=== PATIENT | female | born 1995 | race African-American/Black ===

== ENCOUNTER 2017-08-25 13:34 | Emergency (ER) | payer OTHER ==
[~2017-08-25] VITALS: Ht 160 cm; Wt 83.0 kg
[2017-08-25 14:18] LABS: URINE BILIRUBIN NEGATIVE (Negative); URINE BLOOD NEGATIVE (Negative); URINE CLARITY CLEAR; URINE COLOR YELLOW; URINE GLUCOSE-RANDOM NEGATIVE (Negative); URINE KETONES NEGATIVE (Negative); URINE LEUKOCYTES-REFLEX NEGATIVE (Negative); URINE NITRITE-REFLEX NEGATIVE (Negative); URINE PROTEIN NEGATIVE (Negative); URINE SPECIFIC GRAVITY 1.025 (1.005-1.030); URINE UROBILINOGEN 0.2 E.U./dl (0.2-1.0)
[2017-08-25 15:15] VITALS: BP 115/80
== END 2017-08-25 15:16 | disposition left against medical advice (07) ==
LOC: M.ERS 13:34
PROVIDERS: Physician Assistant
DX: R10.30 Lower abdominal pain, unspecified (principal); F17.210 Nicotine dependence, cigarettes, uncomplicated

== ENCOUNTER 2017-08-29 15:47 | Emergency (ER) | payer OTHER ==
[~2017-08-29] VITALS: Ht 160 cm; Wt 89.8 kg
[2017-08-29 16:02] LABS: URINE BILIRUBIN NEGATIVE (Negative); URINE BLOOD NEGATIVE (Negative); URINE CLARITY CLEAR; URINE COLOR YELLOW; URINE GLUCOSE-RANDOM NEGATIVE (Negative); URINE KETONES NEGATIVE (Negative); URINE LEUKOCYTES-REFLEX NEGATIVE (Negative); URINE NITRITE-REFLEX NEGATIVE (Negative); URINE PROTEIN NEGATIVE (Negative); URINE UROBILINOGEN 0.2 E.U./dl (0.2-1.0)
[2017-08-29 16:29] LABS: ABSOLUTE EOSINOPHILS 0.1 thou/uL (0.0-0.7); ABSOLUTE LYMPHOCYTES 2.7 thou/uL (0.8-5.3); ABSOLUTE MONOCYTES 0.2 thou/uL (0.0-1.2); ABSOLUTE NEUTROPHILS 2.7 thou/uL (1.6-8.1); BASOPHILS 0.5 %; EOSINOPHILS 1.2 %; HEMATOCRIT 38.4 % (37.0-47.0); HEMOGLOBIN 12.6 gm/dL (12.0-15.0); LYMPHOCYTES 47.2 %; MCHC 32.7 g/dL (28.0-37.0); MCV 79.6 fL (80.0-100.0); MONOCYTES 3.9 %; MPV 7.2 fl. (7.2-11.1); NUCLEATED RBCS 0 /100WBC; PLATELET COUNT* 275 thou/uL (150-400); POLYS 47.2 %; RBC 4.83 mil/uL (4.20-5.00); RDW-CV 13.4 % (10.5-14.5); WBC 5.8 thou/uL (4.0-11.0)
[2017-08-29 16:37] LABS: CALCIUM 8.8 mg/dL (8.5-10.1); CREATININE 0.7 mg/dL (0.6-1.3); POTASSIUM 3.5 mmol/L (3.5-5.1)
[2017-08-29 16:41] LABS: ALBUMIN 3.4 g/dL (3.4-5.0); TOTAL BILIRUBIN 0.2 mg/dL (<0.1-1.0)
[2017-08-29] MEDS ORDERED: CITRATE OF MAG296 ML PO (16:53)
[2017-08-29 17:01] VITALS: BP 111/70
== END 2017-08-29 17:02 | disposition home or self-care (01) ==
LOC: M.ERS 15:47
PROVIDERS: Physician Assistant
DX: R35.0 Frequency of micturition (principal); F17.200 Nicotine dependence, unspecified, uncomplicated

== ENCOUNTER 2017-10-22 02:22 | Emergency (ER) | payer OTHER ==
[~2017-10-22] VITALS: Ht 160 cm; Wt 85.3 kg
[~2017-10-22 02:22] MED LIST: CITRATE OF MAG296 ML PO
[2017-10-22 03:12] LABS: URINE BILIRUBIN NEGATIVE (Negative); URINE BLOOD NEGATIVE (Negative); URINE CLARITY CLEAR; URINE COLOR YELLOW; URINE GLUCOSE-RANDOM NEGATIVE (Negative); URINE KETONES NEGATIVE (Negative); URINE LEUKOCYTES-REFLEX NEGATIVE (Negative); URINE NITRITE-REFLEX NEGATIVE (Negative); URINE PROTEIN NEGATIVE (Negative); URINE SPECIFIC GRAVITY 1.025 (1.005-1.030); URINE UROBILINOGEN 0.2 E.U./dl (0.2-1.0)
[2017-10-22] MEDS ORDERED: BACTRIM DS TAB1 EACH PO (03:27)
[2017-10-22] MEDS ORDERED: DIFLUCAN150 MG PO (03:27)
[2017-10-22] MEDS ORDERED: PYRIDIUM200 MG PO (03:27)
[2017-10-22 04:08] VITALS: BP 118/82
== END 2017-10-22 04:10 | disposition home or self-care (01) ==
LOC: M.ERS 02:22
PROVIDERS: Emergency Medicine
DX: N34.2 Other urethritis (principal); F17.200 Nicotine dependence, unspecified, uncomplicated

== ENCOUNTER 2017-11-18 19:46 | Emergency (ER) | payer OTHER ==
[~2017-11-18] VITALS: Ht 160 cm; Wt 85.7 kg
[~2017-11-18 19:46] MED LIST changes: +BACTRIM DS TAB1 EACH PO; +DIFLUCAN150 MG PO; +PYRIDIUM200 MG PO
[2017-11-18 20:46] LABS: URINE BILIRUBIN NEGATIVE (Negative); URINE BLOOD NEGATIVE (Negative); URINE CLARITY CLEAR; URINE COLOR YELLOW; URINE GLUCOSE-RANDOM NEGATIVE (Negative); URINE KETONES NEGATIVE (Negative); URINE LEUKOCYTES-REFLEX NEGATIVE (Negative); URINE NITRITE-REFLEX NEGATIVE (Negative); URINE PROTEIN NEGATIVE (Negative); URINE SPECIFIC GRAVITY >= 1.030 (1.005-1.030); URINE UROBILINOGEN 0.2 E.U./dl (0.2-1.0)
[2017-11-18] MEDS ORDERED: FLAGYL500 MG PO (20:59)
[2017-11-18 21:14] VITALS: BP 114/75
== END 2017-11-18 21:15 | disposition home or self-care (01) ==
LOC: M.ERS 19:46
PROVIDERS: Nurse Practitioner Family
DX: N76.0 Acute vaginitis (principal); F17.210 Nicotine dependence, cigarettes, uncomplicated

== ENCOUNTER 2017-12-21 21:57 | Emergency (ER) | payer OTHER ==
[~2017-12-21] VITALS: Ht 160 cm; Wt 86.2 kg
[~2017-12-21 21:57] MED LIST changes: +FLAGYL500 MG PO
[2017-12-21 22:28] LABS: URINE BILIRUBIN NEGATIVE (Negative); URINE BLOOD NEGATIVE (Negative); URINE CLARITY CLEAR; URINE COLOR YELLOW; URINE GLUCOSE-RANDOM NEGATIVE (Negative); URINE KETONES NEGATIVE (Negative); URINE LEUKOCYTES NEGATIVE (Negative); URINE NITRITE NEGATIVE (Negative); URINE PROTEIN NEGATIVE (Negative); URINE SPECIFIC GRAVITY >= 1.030 (1.005-1.030); URINE UROBILINOGEN 0.2 E.U./dl (0.2-1.0)
[2017-12-21] MEDS ORDERED: CLEOCIN100 MG VAG (23:16)
[2017-12-21 23:28] VITALS: BP 99/63
== END 2017-12-21 23:29 | disposition home or self-care (01) ==
LOC: M.ERS 21:57
PROVIDERS: Nurse Practitioner Family
DX: N76.0 Acute vaginitis (principal); B96.89 Other specified bacterial agents as the cause of diseases classified elsewhere; F17.210 Nicotine dependence, cigarettes, uncomplicated

== ENCOUNTER 2018-01-05 16:01 | Emergency (ER) | payer OTHER ==
[~2018-01-05] VITALS: Ht 160 cm; Wt 88.5 kg
[~2018-01-05 16:01] MED LIST changes: +CLEOCIN100 MG VAG
[2018-01-05 16:15] LABS: URINE BILIRUBIN NEGATIVE (Negative); URINE BLOOD NEGATIVE (Negative); URINE CLARITY CLEAR; URINE COLOR YELLOW; URINE GLUCOSE-RANDOM NEGATIVE (Negative); URINE KETONES NEGATIVE (Negative); URINE LEUKOCYTES NEGATIVE (Negative); URINE NITRITE NEGATIVE (Negative); URINE PROTEIN NEGATIVE (Negative); URINE SPECIFIC GRAVITY 1.025 (1.005-1.030); URINE UROBILINOGEN 0.2 E.U./dl (0.2-1.0)
[2018-01-05] MEDS ORDERED: DOXYCYCLINE 10100 MG PO (16:57)
[2018-01-05 17:14] VITALS: BP 106/78
== END 2018-01-05 17:15 | disposition home or self-care (01) ==
LOC: M.ERS 16:01
PROVIDERS: Nurse Practitioner Family
DX: N89.8 Other specified noninflammatory disorders of vagina (principal); R35.0 Frequency of micturition

== ENCOUNTER 2018-02-02 19:41 | Emergency (ER) | payer OTHER ==
[~2018-02-02] VITALS: Ht 160 cm; Wt 88.9 kg
[~2018-02-02 19:41] MED LIST changes: +DOXYCYCLINE 10100 MG PO
[2018-02-02] MEDS ORDERED: MEDROLDOSEPACK PO (20:04)
[2018-02-02] MEDS ORDERED: HYDROCORTISONE3011 TOP (20:04)
[2018-02-02 20:10] VITALS: BP 115/74
== END 2018-02-02 20:11 | disposition home or self-care (01) ==
LOC: M.ERS 19:41
DX: L23.81 Allergic contact dermatitis due to animal (cat) (dog) dander (principal)

== ENCOUNTER 2018-03-04 07:25 | Emergency (ER) | payer OTHER ==
[~2018-03-04] VITALS: Ht 160 cm; Wt 95.3 kg
[~2018-03-04 07:25] MED LIST changes: +HYDROCORTISONE3011 TOP; +MEDROLDOSEPACK PO
[2018-03-04 07:37] LABS: URINE BILIRUBIN NEGATIVE (Negative); URINE BLOOD NEGATIVE (Negative); URINE CLARITY CLEAR; URINE COLOR YELLOW; URINE GLUCOSE-RANDOM NEGATIVE (Negative); URINE KETONES NEGATIVE (Negative); URINE LEUKOCYTES-REFLEX NEGATIVE (Negative); URINE NITRITE-REFLEX NEGATIVE (Negative); URINE PROTEIN NEGATIVE (Negative); URINE SPECIFIC GRAVITY >= 1.030 (1.005-1.030); URINE UROBILINOGEN 0.2 E.U./dl (0.2-1.0)
[2018-03-04 07:54] VITALS: BP 111/73
== END 2018-03-04 07:54 | disposition home or self-care (01) ==
LOC: M.ERS 07:25
PROVIDERS: Family Medicine
DX: Z71.1 Person with feared health complaint in whom no diagnosis is made (principal)

== ENCOUNTER 2018-05-11 17:49 | Emergency (ER) | payer OTHER ==
[~2018-05-11] VITALS: Ht 160 cm; Wt 89.4 kg
[2018-05-11 17:56] VITALS: BP 124/75
[2018-05-11 18:15] LABS: URINE BILIRUBIN NEGATIVE (Negative); URINE BLOOD 3+ (Negative); URINE CLARITY CLEAR; URINE COLOR YELLOW; URINE GLUCOSE-RANDOM NEGATIVE (Negative); URINE KETONES NEGATIVE (Negative); URINE LEUKOCYTES-REFLEX NEGATIVE (Negative); URINE NITRITE-REFLEX NEGATIVE (Negative); URINE PROTEIN NEGATIVE (Negative); URINE SPECIFIC GRAVITY >= 1.030 (1.005-1.030); URINE UROBILINOGEN 0.2 E.U./dl (0.2-1.0)
[2018-05-11 18:22] LABS: BACTERIA-REFLEX None Seen /HPF (None Seen); CASTS None Seen /LPF (None Seen); CRYSTALS None Seen /LPF (None Seen); SQUAMOUS NONE SEEN /LPF (0-3); URINE RBC None Seen /HPF (0-2); URINE WBC-REFLEX None Seen /HPF (0-5)
[2018-05-11] MEDS ORDERED: MACROBID 100 M100 M1 PO (18:24)
== END 2018-05-11 18:33 | disposition home or self-care (01) ==
LOC: M.ERS 17:49
PROVIDERS: Nurse Practitioner Family
DX: N30.91 Cystitis, unspecified with hematuria (principal)

== ENCOUNTER 2018-09-22 10:13 | Emergency (ER) | payer OTHER ==
[~2018-09-22] VITALS: Ht 160 cm; Wt 88.5 kg
[~2018-09-22 10:13] MED LIST changes: +MACROBID 100 M100 M1 PO
[2018-09-22 10:20] VITALS: BP 114/76
[2018-09-22] MEDS ORDERED: FLUOCINOLONE AC15 G1 TOP (10:37)
== END 2018-09-22 10:47 | disposition home or self-care (01) ==
LOC: M.ERS 10:13
DX: L25.9 Unspecified contact dermatitis, unspecified cause (principal)

== ENCOUNTER 2020-02-29 18:00 | Emergency (ER) | payer OTHER ==
[~2020-02-29] VITALS: Ht 160 cm; Wt 72.6 kg
[~2020-02-29 18:00] MED LIST changes: +FLUOCINOLONE AC15 G1 TOP
[2020-02-29 18:40] LABS: URINE BILIRUBIN NEGATIVE (Negative); URINE BLOOD NEGATIVE (Negative); URINE CLARITY CLEAR; URINE COLOR YELLOW; URINE GLUCOSE-RANDOM NEGATIVE (Negative); URINE KETONES NEGATIVE (Negative); URINE LEUKOCYTES-REFLEX NEGATIVE (Negative); URINE NITRITE-REFLEX NEGATIVE (Negative); URINE PROTEIN NEGATIVE (Negative); URINE SPECIFIC GRAVITY 1.015 (1.005-1.030); URINE UROBILINOGEN 0.2 E.U./dl (0.2-1.0)
[2020-02-29] MEDS ORDERED: FLAGYL500 M1 PO (18:59)
[2020-02-29] MEDS ORDERED: DIFLUCAN200 MG PO (18:59)
[2020-02-29 19:25] VITALS: BP 119/83
== END 2020-02-29 19:26 | disposition home or self-care (01) ==
LOC: M.ERS 18:00
PROVIDERS: Physician Assistant
DX: N89.8 Other specified noninflammatory disorders of vagina (principal); R35.0 Frequency of micturition